=== PATIENT | female | born 1955 | race Caucasian/White ===

== ENCOUNTER 2016-10-12 04:48 | Emergency (ER) | payer OTHER ==
[~2016-10-12] VITALS: Ht 162.6 cm; Wt 69.0 kg
[2016-10-12 04:53] VITALS: Ht 162.6 cm; Wt 69.0 kg
[2016-10-12 06:10] LABS: URINE BLOOD (Dip) POC 1+ (NEGATIVE)
[2016-10-12] MEDS ORDERED: ONDANSETRON 4 MG INJ IV STA (06:40)
[2016-10-12] MEDS ORDERED: HYDROmorphONE 1 MG/ML SYG IV STA (06:40)
[2016-10-12 07:07] LABS: ADD UMIC YES; UR ASCORBIC ACID NEGATIVE (NEGATIVE); UR BILIRUBIN (Dip) NEGATIVE (NEGATIVE); UR BLOOD (Dip) 1+ mg/dL (NEGATIVE); UR CLARITY CLEAR (CLEAR); UR COLOR YELLOW (YELLOW); UR GLUCOSE (Dip) NEGATIVE (NEGATIVE); UR KETONES (Dip) NEGATIVE (NEGATIVE); UR LEUKOCYTE ESTERASE (Dip) TRACE Leu/ul (NEGATIVE); UR MUCUS FEW /HPF (NONE SEEN); UR NITRITE (Dip) NEGATIVE (NEGATIVE); UR RBC 1 /HPF (0-5); UR SQUAMOUS EPITHELIAL CELL FEW /HPF (FEW); UR TOTAL PROTEIN (Dip) NEGATIVE (NEGATIVE); UR UROBILINOGEN (Dip) NEGATIVE (NEGATIVE)
[2016-10-12 07:27] LABS: ADD SCAN DIFF NO
[2016-10-12 07:32] LABS: BASOPHIL # 0.1 10^3/ul (0.0-0.1); BASOPHILS % 0.6 % (0.0-2.0); EOSINOPHILS # 0.2 10^3/ul (0.0-0.5); EOSINOPHILS % 2.2 % (0.0-7.0); HEMATOCRIT 38.5 % (37.0-47.0); HEMOGLOBIN 12.2 g/dl (12.0-16.0); LYMPHOCYTES # 1.8 10^3/ul (0.8-2.9); LYMPHOCYTES % 21.8 % (15.0-51.0); MEAN CORPUSCULAR HEMOGLOBIN 30.7 pg (29.0-33.0); MEAN CORPUSCULAR HGB CONC 31.7 g/dl (32.0-37.0); MEAN CORPUSCULAR VOLUME 96.7 fl (82.0-101.0); MEAN PLATELET VOLUME 10.9 fl (7.4-10.4); MONOCYTE # 0.7 10^3/ul (0.3-0.9); MONOCYTES % 8.4 % (0.0-11.0); NEUTROPHIL # 5.4 10^3/ul (1.6-7.5); NEUTROPHILS % 66.6 % (39.0-77.0); PLATELET COUNT 200 10^3/UL (140-415); RED BLOOD COUNT 3.98 10^6/ul (4.20-5.40); RED CELL DISTRIBUTION WIDTH 13.8 % (11.5-14.5); WHITE BLOOD COUNT 8.1 10^3/ul (4.8-10.8)
--- NOTE | 2016-10-12 07:46 | RADRPT ---
PROCEDURE: CT Abdomen and Pelvis without contrast. CLINICAL INDICATION: Right abdominal and flank pain. TECHNIQUE: Routine axial tomographic images of the abdomen and pelvis were obtained from the domes the diaphragm to the symphysis pubis. The patient was scanned withoutoral or intravenous contrast. Coronal and sagittal reformatted images were obtained from the axial source images. Images were re viewed on a high-resolution PACS workstation. The total exam CTDI equals 9.12 mGy and the total exam DLP equals 459.98 mGy-cm. One or more of the following dose reduction techniques were used: Autom ated exposure control, adjustment of the mA and / or kV according to patient size, or use of iterati ve reconstruction technique. COMPARISON: None. FINDINGS: The visualized portions of the lung bases demonstrate mild bilateral basilar atelectasis. Evaluat ion of the intra-abdominal solid organs is limited on this noncontrast examination. The liver appea rs normal in size. There is no intra or extrahepatic biliary dilatation. The gallbladder is unrema rkable by CT criteria. There is a nonenlarged calcified periportal lymph node. The spleen, pancreas, and adrenal glands are unremarkable. There is very mild peripancreatic fatty infiltration along the head of the pancreas. The kidneys are symmetric in size. No renal, ureteral, or bladder calculi are identified. No perine phric inflammatory changes are identified. The urinary bladder is grossly unremarkable. The bowel demonstrates normal course and caliber. There is no evidence of bowel obstruction. The ap pendix is unremarkable. The uterus is surgically absent. No intraperitoneal free fluid, free air or abscess is identified. The aorta is normal in caliber and contains vascular calcifications. No r etroperitoneal, mesenteric, or inguinal lymphadenopathy is identified. The osseous structures are unremarkable. No significant subcutaneous soft tissue abnormalities are seen. IMPRESSION: 1. Limited, noncontrast CT of the abdomen and pelvis. There is very mild fatty infiltration along th e head of the pancreas. Clinical laboratory correlation for pancreatitis is recommended. 2. Status post hysterectomy. RPTAT: HH .Maria D Reed MD, MD Date Time Electronically viewed and signed by .Maria D Reed MD, on 10/12/2016 07:46 .[place]
[2016-10-12 07:49] LABS: ALBUMIN 4.8 g/dl (3.3-4.9); ALBUMIN/GLOBULIN RATIO 1.84; BILIRUBIN,INDIRECT 0.1 mg/dl (0-1.1); BILIRUBIN,TOTAL 0.1 mg/dl (0.2-1.3); CALCIUM 9.1 mg/dl (8.4-10.2); CREATININE 0.87 mg/dl (0.44-1.00); POTASSIUM 4.2 mmol/L (3.5-5.1); TOTAL PROTEIN 7.4 g/dl (6.1-8.1)
[2016-10-12] MEDS ORDERED: HYDR-902 PO (10:12)
[2016-10-12] MEDS ORDERED: IBUP800T25 PO (10:12)
[2016-10-12] MEDS ORDERED: METH750T93 PO (10:12)
--- NOTE | 2016-10-12 10:18 | ERD ---
ER Documentation Chief Complaint Date/Time DATE: 10/12/16 TIME: 10:14 Chief Complaint right back pain HPI This a 60-year-old female who complains of nearly 1 week of pain in her right back. She said it hurts from her right trapezius right thoracic spine and right low back. She says it hurts to move and it feels very sore. She had the same symptoms in the left side about 3 weeks ago that is much better but still is a little bit there. She also says that she has had a kidney stone in the past and is not sure if it is this or not she says it does not feel quite the same. This pain feels more dull and constant and worse with movement. No hematuria chest pain shortness of breath nausea vomiting diarrhea no abdominal pain no fever. ROS All systems reviewed and are negative except as per history of present illness. Medications Home Meds Active Scripts Methocarbamol* (Robaxin*) 750 Mg Tablet, 750 MG PO TID, #20 TAB Prov:FABRICE JOYSTANDREAS A. DO 10/12/16 Ibuprofen* (Motrin*) 800 Mg Tab, 800 MG PO Q6H Y for PAIN AND OR ELEVATED TEMP, #30 TAB Prov:LEXAVIOSFABRICESTOLOS A. DO 10/12/16 Hydrocodone/Acetaminophen ([place] 10-325 Tablet) 1 Each Tablet, 1 TAB PO Q6H Y for PAIN, #20 TAB Prov:LEKKOSFABRICESTOLOS A. DO 10/12/16 Allergies Allergies: Coded Allergies: sulfamethoxazole (Verified Allergy, Unknown, mouth sores, 10/12/16) trimethoprim (Verified Allergy, Unknown, mouth sores, 10/12/16) PMhx/Soc History of Surgery: Yes (hysty) Anesthesia Reaction: No Hx Neurological Disorder: No Hx Cardiac Disorders: Yes (HTN) Hx Psychiatric Problems: Yes (Depression) Hx Miscellaneous Medical Probl: Yes (kidney stones, fibromyalgia) Hx Alcohol Use: No Hx Substance Use: No Hx Tobacco Use: Yes Smoking Status: Current every day smoker FmHx Family History: No coronary disease Physical Exam Vitals Vital Signs Date Time Temp Pulse Resp B/P Pulse Ox O2 Delivery O2 Flow Rate FiO2 10/12/16 09:22 59 16 158/72 100 Room Air 10/12/16 06:24 97.9 59 20 154/69 98 Room Air 10/12/16 06:08 98.2 55 20 149/62 100 Room Air 10/12/16 04:53 98.0 66 24 190/8 98 Physical Exam Const: Well-developed, well-nourished Head: Atraumatic, normocephalic Eyes: Normal Conjunctiva, PERRLA, EOMI, normal sclera, no nystagmus ENT: Normal External Ears, Nose and Mouth, moist mucus membranes. Neck: Full range of motion. No meningismus, no lymphadenopathy. Resp: Clear to auscultation bilaterally, no wheezing, rhonchi, rales Cardio: Regular rate and rhythm, no murmurs, S1 S2 present Abd: Soft, non tender x 4, non distended. Normal bowel sounds, no guarding or rebound, no pulsitile abdominal masses or bruits Skin: No petechiae or rashes, no ecchymosis , no maculopapular rash Back: Reproducible tenderness to the right thoracic and lumbar spine with muscle spasm. Ext: No cyanosis, or edema, FROM x 4, normal inspection, neurovascularly intact x 4 Neur: Awake and alert, STR 5/5 x 4, sensation intact x 4, no focal findings, cerebellum intact Psych: Normal Mood and Affect Result Diagram: 10/12/16 0700 10/12/16 0700 Results 24 hrs Laboratory Tests Test 10/12/16 06:00 10/12/16 06:14 10/12/16 07:00 Urine Color YELLOW Urine Clarity CLEAR Urine pH 5.0 Urine Specific [place] 1.020 Urine Ketones NEGATIVEmg/dL Urine Nitrite NEGATIVEmg/dL Urine Bilirubin NEGATIVEmg/dL Urine Urobilinogen NEGATIVEmg/dL Urine Leukocyte Esterase TRACELeu/ul Urine Microscopic RBC 1/HPF Urine Microscopic WBC 2/HPF Urine Squamous Epithelial Cells FEW/HPF Urine Calcium Oxalate Crystals MODERATE/HPF Urine Mucus FEW/HPF Urine Hemoglobin 1+mg/dL Urine Glucose NEGATIVEmg/dL Urine Total Protein NEGATIVEmg/dl Bedside Urine pH (LAB) 5.0 Bedside Urine Protein (LAB) Negative Bedside Urine Glucose (UA) Negative Bedside Urine Ketones (LAB) Negative Bedside Urine Blood 1+ Bedside Urine Nitrite (LAB) Negative Bedside Urine Leukocyte Esterase (L Negative White Blood Count 8.110^3/ul Red Blood Count 3.9810^6/ul Hemoglobin 12.2g/dl Hematocrit 38.5% Mean Corpuscular Volume 96.7fl Mean Corpuscular Hemoglobin 30.7pg Mean Corpuscular Hemoglobin Concent 31.7g/dl Red Cell Distribution Width 13.8% Platelet Count 70589^3/UL Mean Platelet Volume 10.9fl Neutrophils % 66.6% Lymphocytes % 21.8% Monocytes % 8.4% Eosinophils % 2.2% Basophils % 0.6% Nucleated Red Blood Cells % 0.0/100WBC Neutrophils # 5.410^3/ul Lymphocytes # 1.810^3/ul Monocytes # 0.710^3/ul Eosinophils # 0.210^3/ul Basophils # 0.110^3/ul Nucleated Red Blood Cells # 0.010^3/ul Sodium Level 144mmol/L Potassium Level 4.2mmol/L Chloride Level 104mmol/L Carbon Dioxide Level 27mmol/L Anion Gap 17 Blood Urea Nitrogen 20mg/dl Creatinine 0.87mg/dl Glucose Level 99mg/dl Calcium Level 9.1mg/dl Total Bilirubin 0.1mg/dl Direct Bilirubin 0.00mg/dl Indirect Bilirubin 0.1mg/dl Aspartate Amino Transf (AST/SGOT) 23IU/L Alanine Aminotransferase (ALT/SGPT) 24IU/L Alkaline Phosphatase 65IU/L Total Protein 7.4g/dl Albumin 4.8g/dl Globulin 2.60g/dl Albumin/Globulin Ratio 1.84 Lipase 133U/L Current Medications Medications (Trade) Dose Ordered Sig/Noe Route PRN Reason Start Time Stop Time Status Last Admin Dose Admin Hydromorphone HCl (Dilaudid) 1 mg ONCE STAT IV 10/12/16 06:40 10/12/16 06:41 DC 10/12/16 07:07 Ondansetron HCl (Zofran Inj) 4 mg ONCE STAT IV 10/12/16 06:40 10/12/16 06:41 DC 10/12/16 07:05 Procedures/MDM PROCEDURE: CT Abdomen and Pelvis without contrast. CLINICAL INDICATION: Right abdominal and flank pain. TECHNIQUE: Routine axial tomographic images of the abdomen and pelvis were obtained from the domes the diaphragm to the symphysis pubis. The patient was scanned withoutoral or intravenous contrast. Coronal and sagittal reformatted images were obtained from the axial source images. Images were reviewed on a high-resolution PACS workstation. The total exam CTDI equals 9.12 mGy and the total exam DLP equals 459.98 mGy-cm. One or more of the following dose reduction techniques were used: Automated exposure control, adjustment of the mA and / or kV according to patient size, or use of iterative reconstruction technique. COMPARISON: None. FINDINGS: The visualized portions of the lung bases demonstrate mild bilateral basilar atelectasis. Evaluation of the intra-abdominal solid organs is limited on this noncontrast examination. The liver appears normal in size. There is no intra or extrahepatic biliary dilatation. The gallbladder is unremarkable by CT criteria. There is a nonenlarged calcified periportal lymph node. The spleen , pancreas, and adrenal glands are unremarkable. There is very mild peripancreatic fatty infiltration along the head of the pancreas. The kidneys are symmetric in size. No renal, ureteral, or bladder calculi are identified. No perinephric inflammatory changes are identified. The urinary bladder is grossly unremarkable. The bowel demonstrates normal course and caliber. There is no evidence of bowel obstruction. The appendix is unremarkable. The uterus is surgically absent. No intraperitoneal free fluid, free air or abscess is identified. The aorta is normal in caliber and contains vascular calcifications. No retroperitoneal, mesenteric, or inguinal lymphadenopathy is identified. The osseous structures are unremarkable. No significant subcutaneous soft tissue abnormalities are seen. IMPRESSION: 1. Limited, noncontrast CT of the abdomen and pelvis. There is very mild fatty infiltration along the head of the pancreas. Clinical laboratory correlation for pancreatitis is recommended. 2. Status post hysterectomy. RPTAT: .Maria D Reed MD, MD Date Time Electronically viewed and signed by .Maria D Reed MD, on 10/12/2016 07 :46 .G/ CC: GA JOY. DO The patient has some mild fatty inflammation around the head of the pancreas but her lipase is normal. I do not think this is the cause of her pain. She clearly has musculoskeletal pain with reproducible pain on palpation and with movement. Workup is unremarkable for any intra-abdominal pathology. Will discharge home on [place] Motrin and Robaxin Departure Diagnosis: Primary Impression: Back pain Back pain location: low back pain Chronicity: acute Back pain laterality: right Sciatica presence: without sciatica Qualified Code: M54.5 - Acute right-sided low back pain without sciatica Additional Impression: Muscle spasm Condition: Stable Patient Instructions: Muscle Spasm, Back Pain (Acute Or Chronic) GA JOY DO Oct 12, 2016 10:17
[2016-10-12 10:28] VITALS: BP 147/68; PULSE 84; RESP 20; TEMP 98.2
== END 2016-10-12 10:28 | disposition home or self-care (01) ==
LOC: E/R 04:48
DX: M54.5 Low back pain (principal); M62.830 Muscle spasm of back; I10 Essential (primary) hypertension; F17.210 Nicotine dependence, cigarettes, uncomplicated
CPT/HCPCS: 74176; 80053; 81001; 83690; 85025; J1170; J2405; Z7610; 36415; 81003; 96374; 96375